=== PATIENT | female | born 1975 | race Caucasian/White ===

== ENCOUNTER → 2018-01-05 | Outpatient (CLI) | payer BC ==
[~2018-01-05] MED LIST: NOVOLOG 100U100 U/ML SQ; PRENATAL1 TA5 PO; VITAMIN D1000 IU PO
== END ==
LOC: MC.RAD 09:46
DX: R92.2 Inconclusive mammogram (principal)
CPT/HCPCS: G0279

== ENCOUNTER → 2019-01-22 | Outpatient (CLI) | payer MEDICARE, OTHER | LOC: MC.RAD 11:30 | DX: Z12.31 Encounter for screening mammogram for malignant neoplasm of breast (principal) ==

== ENCOUNTER → 2020-09-25 | Outpatient (CLI) | payer MEDICARE, OTHER | LOC: MC.RAD 14:22 | DX: Z12.31 Encounter for screening mammogram for malignant neoplasm of breast (principal); Z12.9 Encounter for screening for malignant neoplasm, site unspecified; Z79.899 Other long term (current) drug therapy ==

== ENCOUNTER → 2020-10-09 | Outpatient (CLI) | payer MEDICARE, OTHER | LOC: MC.RAD 13:56 | DX: N60.11 Diffuse cystic mastopathy of right breast (principal); R92.8 Other abnormal and inconclusive findings on diagnostic imaging of breast; N63.0 Unspecified lump in unspecified breast ==

== ENCOUNTER → 2024-02-07 | Outpatient (CLI) | payer MEDICARE, OTHER | LOC: MC.RAD 13:56 | DX: N60.11 Diffuse cystic mastopathy of right breast (principal) ==